=== PATIENT | male | born 1990 | race Caucasian/White ===

== ENCOUNTER → 2025-02-24 | Outpatient (CLI) | payer MEDICAID, SELFPAY ==
--- NOTE | 2025-02-24 14:31 | XR_ITS ---
Examination: MRI abdomen with intravenous contrast. MRI abdomen without intravenous contrast. Date and time of exam: February 24, 2025 1603 hrs. Indications: Diagnosis abdominal pain diarrhea 10 years, diagnosis ulcerative colitis Technique: Multiple axial, sagittal and coronal sections of the abdomen obtained. Transverse images, TR 6020, TE 107. T1 weighted transverse images, TR 582, TE 9.5. T2-weighted sagittal images, TR 4000, TE 105. T2-weighted sagittal images, TR 4000, TE 5. Coronal images, TR 4210, TE 107. Axial and coronal images are obtained post 20 cc intravenous injection, gadolinium. Findings: No focal liver lesions on the precontrast images. Normal gallbladder. Normal common hepatic common bile duct. No pancreatic mass or peripancreatic edema Normal spleen. Abdominal aorta normal size No ascites 11 mm left renal cyst, horseshoe kidneys Postcontrast images demonstrate no abnormal enhancing liver splenic or renal lesion Impression: No focal liver lesion No intra or extrahepatic biliary tract dilatation Normal gallbladder Negative for pancreatitis
--- NOTE | 2025-02-24 14:31 | XR_ITS ---
Examination: MRI pelvis with intravenous contrast. MRI pelvis without intravenous contrast. Date and time of exam: February 24, 2025, 1603 hrs. Indications: Diagnosis ulcerative colitis pancolitis diarrhea mid abdominal pain radiating to the pelvis 10 years Technique: Multiple axial, sagittal and coronal sections of the pelvis obtained. Transverse images, TR 6020, TE 107. T1 weighted transverse images, TR 582, TE 9.5. T2-weighted sagittal images, TR 4000, TE 105. T2-weighted sagittal images, TR 4000, TE 5. Coronal images, TR 4210, TE 107. Axial and coronal images are obtained post 20 cc intravenous injection, gadolinium. Findings: No common iliac and external iliac internal iliac or common femoral lymphadenopathy No free fluid in the pelvis Normal seminal vesicles Transverse prostate dimension 3.6 cm no prostate nodules Contracted urinary bladder which is intact Postcontrast images demonstrate no abnormal enhancement in the pelvis There is serpiginous signal in both femoral heads, greater on the left side occupying 40% of the articular surface Impression: No pelvic mass or pelvic lymphadenopathy Bilateral hip avascular necrosis
== END | disposition home or self-care (01) ==
PROVIDERS: Referring Provider Physician Assistant; Visit Provider Physician Assistant
DX: R19.7 Diarrhea, unspecified (principal); K51.00 Ulcerative (chronic) pancolitis without complications
CPT/HCPCS: 72197; 74183; A9577